=== PATIENT | female | born 1960 | race Caucasian/White ===

== ENCOUNTER → 2017-02-04 | Outpatient (CLI) | payer MEDICARE, OTHER ==
--- NOTE | 2017-02-04 11:50 | CT ---
EXAMINATION TYPE: CT sinus wo con DATE OF EXAM: 02/04/2017 COMPARISON: NONE HISTORY: 56-year-old female sinus headache, chronic sinusitis CT DLP: 615.90 mGycm Automated exposure control for dose reduction was used. TECHNIQUE: Noncontrast axial views of the paranasal sinuses were obtained. Coronal reconstructions pe rformed. FINDINGS: Very mild mucosal thickening along the floors of the maxillary sinuses with a small polyp or mucosal retention cyst along the left maxillary sinus floor. The frontal, ethmoid, and sphenoid sinuses are otherwise clear. There is no air-fluid level. Reactive sabrina- osteogenesis is not seen. There is no destruction of the osseous joshi of the paranasal sinuses. The osteomeatal complexes are patent. There is leftward nasal septal deviation. The imaged brain and orbits are normal in appearance. The visualized mastoid air cells and middle ear cavities are well pneumatized. Reformatted images confirm above findings. IMPRESSION: Mild chronic maxillary sinus disease. Leftward nasal septal deviation.
== END | disposition home or self-care (01) ==
LOC: RADCTMAIN 09:51
PROVIDERS: ATTEND Family Medicine
DX: J32.0 Chronic maxillary sinusitis (principal); J34.2 Deviated nasal septum
CPT/HCPCS: 70486